=== PATIENT | male | born 1945 | race Caucasian/White ===

== ENCOUNTER 2018-04-05 12:00 | Inpatient (IN) | payer MEDICARE, OTHER ==
[~2018-04-05] VITALS: Ht 172.7 cm; Wt 95.1 kg
[2018-04-05] MEDS ORDERED: FINA5TAB4 PO (12:24)
[2018-04-05] MEDS ORDERED: CARB1TAB25 PO (12:24)
[2018-04-05] MEDS ORDERED: SODIUM CHLORIDE FLUSH 10ML SYR IVF ONE (12:30)
[2018-04-05 12:31] LABS: INTERNATIONAL NORMALIZED RATIO 0.96 (0.93-1.1); PROTHROMBIN TIME 9.9 Seconds (9.6-11.5)
[2018-04-05 12:34] LABS: ALBUMIN 3.2 g/dL (3.4-5.0); ANION GAP 8 mmol/L (5-15); CALCIUM 8.5 mg/dL (8.5-10.1); CHLORIDE 109 mmol/L (98-107); CREATININE 1.24 mg/dL (0.7-1.3)
[2018-04-05 12:39] LABS: TROPONIN I < 0.015 ng/mL (0.000-0.045)
[2018-04-05] MEDS ORDERED: LACT10SO28 PO (12:49)
[2018-04-05] MEDS ORDERED: CLON0.12 PO (12:49)
[2018-04-05] MEDS ORDERED: CARB1TAB4 PO (12:49)
[2018-04-05] MEDS ORDERED: SODIUM CHLORIDE FLUSH 10ML SYR IVF PRN (13:00)
[2018-04-05 13:07] LABS: BASOPHILS # (AUTO) 0.03 x10^3/uL (0-0.1); BASOPHILS % (AUTO) 1 % (0-1); EOSINOPHILS # (AUTO) 0.04 x10^3/uL (0-0.4); EOSINOPHILS % (AUTO) 1 % (1-7); LYMPHOCYTES # (AUTO) 0.92 x10^3/uL (1-3.4); LYMPHOCYTES % (AUTO) 16 % (22-44); MD NO; MEAN CORPUSCULAR HEMOGLOBIN 30.7 pg (27.5-34.5); MEAN CORPUSCULAR HGB CONC 32.9 g/dL (33.2-36.2); MEAN CORPUSCULAR VOLUME 93.5 fL (81-97); MEAN PLATELET VOLUME 9.4 fL (7.4-10.4); MONOCYTES # (AUTO) 0.57 x10^3/uL (0.2-0.8); MONOCYTES % (AUTO) 10 % (2-9); NEUTROPHILS # (AUTO) 4.33 x10^3/uL (1.8-6.8); NEUTROPHILS % (AUTO) 74 % (42-75); PLATELET COUNT 181 x10^3/uL (130-400); RED BLOOD COUNT 3.97 x10^6/uL (4.38-5.82); RED CELL DISTRIBUTION WIDTH 14.1 % (9.4-14.8)
[2018-04-05] MEDS ORDERED: BISACODYL 10 MG SUPP PR PRN (14:00)
[2018-04-05] MEDS ORDERED: ENALAPRILAT 1.25 MG/ML, 2ML IVPush PRN (14:00)
[2018-04-05] MEDS ORDERED: ONDANSETRON ODT 4 MG PO PRN (14:00)
[2018-04-05] MEDS ORDERED: ACETAMINOPHEN 325 MG TABLET PO PRN (14:00)
[2018-04-05] MEDS ORDERED: GADOBUTROL 10 MMOL/10 ML PFS ONE (14:39)
[2018-04-05] MEDS: SODIUM CHLORIDE 0.9% 1,000 ML IV SCH (16:13)
[2018-04-05] MEDS: ENOXAPARIN 40 MG/0.4 ML SQ SCH (16:14)
[2018-04-05] MEDS: CARBIDOPA/LEVODOPA CR 25 MG/100 MG TABLET PO SCH ×2 (16:14→20:59)
[2018-04-05 16:33] VITALS: BP 148/86
[2018-04-05 19:55] VITALS: BP 158/89
[2018-04-05] MEDS ORDERED: LACTULOSE 10 GM/15 ML UDC PO SCH (21:00)
[2018-04-05] MEDS: LACTULOSE 10 GM/15 ML UDC PO SCH (21:00)
[2018-04-06 02:00] VITALS: BP 161/99
[2018-04-06] MEDS: SODIUM CHLORIDE 0.9% 1,000 ML IV SCH ×2 (03:09→16:29)
[2018-04-06 05:27] LABS: BASOPHILS # (AUTO) 0.03 x10^3/uL (0-0.1); BASOPHILS % (AUTO) 1 % (0-1); EOSINOPHILS # (AUTO) 0.13 x10^3/uL (0-0.4); EOSINOPHILS % (AUTO) 2 % (1-7); LYMPHOCYTES # (AUTO) 1.68 x10^3/uL (1-3.4); LYMPHOCYTES % (AUTO) 30 % (22-44); MD NO; MEAN CORPUSCULAR HEMOGLOBIN 30.8 pg (27.5-34.5); MEAN CORPUSCULAR HGB CONC 32.9 g/dL (33.2-36.2); MEAN CORPUSCULAR VOLUME 93.7 fL (81-97); MONOCYTES % (AUTO) 12 % (2-9); NEUTROPHILS # (AUTO) 3.16 x10^3/uL (1.8-6.8); NEUTROPHILS % (AUTO) 55 % (42-75); PLATELET COUNT 182 x10^3/uL (130-400); RED BLOOD COUNT 3.99 x10^6/uL (4.38-5.82); RED CELL DISTRIBUTION WIDTH 13.8 % (9.4-14.8)
[2018-04-06 05:35] LABS: CHLORIDE 109 mmol/L (98-107)
[2018-04-06] MEDS: CARBIDOPA/LEVODOPA CR 25 MG/100 MG TABLET PO SCH ×4 (05:36→20:56)
[2018-04-06 05:42] LABS: ALANINE AMINOTRANSFERASE 10 U/L (12-78); ALBUMIN 3.1 g/dL (3.4-5.0); ALKALINE PHOSPHATASE 109 U/L (45-117); ANION GAP 7 mmol/L (5-15); BILIRUBIN,TOTAL 0.4 mg/dL (0.2-1.0); CALCIUM 8.1 mg/dL (8.5-10.1); CHOL/HDL RATIO 4.6; CHOLESTEROL, TOTAL 181 mg/dL (140-239); CREATININE 0.87 mg/dL (0.7-1.3); HDL CHOL % 22 % (26-37); HDL CHOLESTEROL (DIRECT) 39 mg/dL (40-60); LDL CHOLESTEROL,CALCULATED 106 mg/dL (54-169); LDL/HDL RATIO 2.7 (0.5-3.0); TOTAL PROTEIN 6.3 g/dL (6.4-8.2); TRIGLYCERIDES 178 mg/dL (50-200); VLDL CHOLESTEROL 36 mg/dL (0-25)
[2018-04-06 08:04] VITALS: BP 159/95
[2018-04-06] MEDS: LACTULOSE 10 GM/15 ML UDC PO SCH ×2 (08:29→21:02)
[2018-04-06] MEDS ORDERED: SENNA/DOCUSATE TABLET PO SCH (09:00)
[2018-04-06] MEDS: FINASTERIDE 5 MG TABLET PO SCH (09:12)
[2018-04-06] MEDS: ASPIRIN 325 MG TABLET EC PO SCH (10:55)
[2018-04-06 13:33] VITALS: BP 120/70
[2018-04-06] MEDS: ENOXAPARIN 40 MG/0.4 ML SQ SCH (15:48)
[2018-04-06 19:20] VITALS: BP 169/83
[2018-04-06] MEDS: ATORVASTATIN 40 MG TABLET PO SCH (20:56)
[2018-04-07 02:00] VITALS: BP 140/73
[2018-04-07] MEDS: CARBIDOPA/LEVODOPA CR 25 MG/100 MG TABLET PO SCH ×4 (05:48→20:27)
[2018-04-07] MEDS: ASPIRIN 325 MG TABLET EC PO SCH (05:49)
[2018-04-07] MEDS: SODIUM CHLORIDE 0.9% 1,000 ML IV SCH (05:49)
[2018-04-07 08:23] VITALS: BP 168/87
[2018-04-07] MEDS: FINASTERIDE 5 MG TABLET PO SCH (09:07)
[2018-04-07 10:06] LABS: BASOPHILS # (AUTO) 0.08 x10^3/uL (0-0.1); BASOPHILS % (AUTO) 1 % (0-1); EOSINOPHILS # (AUTO) 0.09 x10^3/uL (0-0.4); EOSINOPHILS % (AUTO) 1 % (1-7); LYMPHOCYTES # (AUTO) 1.33 x10^3/uL (1-3.4); LYMPHOCYTES % (AUTO) 21 % (22-44); MD NO; MEAN CORPUSCULAR HEMOGLOBIN 31.9 pg (27.5-34.5); MEAN CORPUSCULAR HGB CONC 34.3 g/dL (33.2-36.2); MEAN CORPUSCULAR VOLUME 93.1 fL (81-97); MEAN PLATELET VOLUME 8.8 fL (7.4-10.4); MONOCYTES # (AUTO) 0.57 x10^3/uL (0.2-0.8); MONOCYTES % (AUTO) 9 % (2-9); NEUTROPHILS # (AUTO) 4.35 x10^3/uL (1.8-6.8); NEUTROPHILS % (AUTO) 68 % (42-75); PLATELET COUNT 192 x10^3/uL (130-400); RED BLOOD COUNT 4.19 x10^6/uL (4.38-5.82); RED CELL DISTRIBUTION WIDTH 13.8 % (9.4-14.8)
[2018-04-07 10:14] LABS: INTERNATIONAL NORMALIZED RATIO 0.97 (0.93-1.1)
[2018-04-07 10:16] LABS: ANION GAP 6 mmol/L (5-15); CALCIUM 8.5 mg/dL (8.5-10.1); CHLORIDE 109 mmol/L (98-107); CREATININE 1.03 mg/dL (0.7-1.3)
[2018-04-07 14:13] VITALS: BP 142/88
[2018-04-07] MEDS: ISOSORBIDE DINITRATE 10 MG TABLET PO SCH ×2 (15:46→20:27)
[2018-04-07] MEDS: ENOXAPARIN 40 MG/0.4 ML SQ SCH (15:47)
[2018-04-07] MEDS ORDERED: LORazepam 2 MG/ML, 1ML IVPush PRN (16:00)
[2018-04-07] MEDS: LACTOBACILLUS CHEW TABLET PO SCH ×2 (17:08→20:27)
[2018-04-07 19:26] VITALS: BP 103/66
[2018-04-07] MEDS: ATORVASTATIN 40 MG TABLET PO SCH (20:27)
[2018-04-08] VITALS (10 sets, daily range): BP systolic 89–167; BP diastolic 58–91
[2018-04-08] MEDS: ASPIRIN 325 MG TABLET EC PO SCH (05:56)
[2018-04-08] MEDS: CARBIDOPA/LEVODOPA CR 25 MG/100 MG TABLET PO SCH ×4 (05:56→20:59)
[2018-04-08] MEDS: LACTOBACILLUS CHEW TABLET PO SCH ×3 (08:19→20:59)
[2018-04-08] MEDS: FINASTERIDE 5 MG TABLET PO SCH (08:19)
[2018-04-08] MEDS: ISOSORBIDE DINITRATE 10 MG TABLET PO SCH (09:41)
[2018-04-08] MEDS: ENOXAPARIN 40 MG/0.4 ML SQ SCH (14:41)
[2018-04-08] MEDS: SODIUM CHLORIDE 0.9% 1,000 ML IV SCH (14:41)
[2018-04-08] MEDS: ATORVASTATIN 40 MG TABLET PO SCH (20:59)
[2018-04-08] MEDS: DOCUSATE 100 MG CAPSULE PO PRN (20:59)
[2018-04-09 01:54] VITALS: BP 137/84
[2018-04-09] MEDS: CARBIDOPA/LEVODOPA CR 25 MG/100 MG TABLET PO SCH ×4 (06:04→20:29)
[2018-04-09] MEDS: SODIUM CHLORIDE 0.9% 1,000 ML IV SCH (06:04)
[2018-04-09] MEDS: ASPIRIN 325 MG TABLET EC PO SCH (06:04)
[2018-04-09] MEDS: LACTOBACILLUS CHEW TABLET PO SCH ×3 (07:48→20:29)
[2018-04-09] MEDS: FINASTERIDE 5 MG TABLET PO SCH (07:48)
[2018-04-09 08:07] VITALS: BP 147/84
[2018-04-09 14:10] VITALS: BP 91/56
[2018-04-09] MEDS: ENOXAPARIN 40 MG/0.4 ML SQ SCH (14:14)
[2018-04-09] MEDS: DOCUSATE 100 MG CAPSULE PO PRN (14:14)
[2018-04-09 14:19] VITALS: BP 144/76
[2018-04-09 17:05] VITALS: BP 174/93
[2018-04-09 19:15] VITALS: BP 134/78
[2018-04-09] MEDS: ATORVASTATIN 40 MG TABLET PO SCH (20:29)
[2018-04-10 01:05] VITALS: BP 134/74
[2018-04-10] MEDS: CARBIDOPA/LEVODOPA CR 25 MG/100 MG TABLET PO SCH ×2 (06:00→10:03)
[2018-04-10] MEDS: DOCUSATE 100 MG CAPSULE PO PRN (06:00)
[2018-04-10] MEDS: ASPIRIN 325 MG TABLET EC PO SCH (06:00)
[2018-04-10 07:39] VITALS: BP 156/87
[2018-04-10 09:42] VITALS: BP 92/51
[2018-04-10] MEDS ORDERED: SODIUM CHLORIDE 0.9%, 250ML IVBOLUS ONE (10:00)
[2018-04-10] MEDS: LACTOBACILLUS CHEW TABLET PO SCH (10:02)
[2018-04-10] MEDS: FINASTERIDE 5 MG TABLET PO SCH (10:03)
[2018-04-10] MEDS ORDERED: ASPI-496 PO (11:46)
[2018-04-10] MEDS ORDERED: ACID1TAB7 PO (11:46)
[2018-04-10 11:54] VITALS: BP 122/74
[2018-04-10 14:00] VITALS: BP 127/79
[2018-04-10] MEDS: ENOXAPARIN 40 MG/0.4 ML SQ SCH (14:03)
== END 2018-04-10 17:27 | disposition home or self-care (01) | DRG 683 ==
LOC: ED 12:59 → EDIP 13:00 → OBSVTOIN 13:00 → INTOOBSV 13:00 → ED 13:23 → 4EST 13:25
PROVIDERS: ADMIT Hospitalist; ATTEND Hospitalist
DX: N17.9 Acute kidney failure, unspecified (principal); G45.9 Transient cerebral ischemic attack, unspecified; R47.01 Aphasia; I95.1 Orthostatic hypotension; G20 Parkinson's disease; E66.9 Obesity, unspecified; I35.8 Other nonrheumatic aortic valve disorders; I10 Essential (primary) hypertension; K59.09 Other constipation; Z66 Do not resuscitate; R33.9 Retention of urine, unspecified; Z68.31 Body mass index [BMI] 31.0-31.9, adult; R60.0 Localized edema
CPT/HCPCS: 36415; 70450; 70553; 71045; 80047; 80048; 80053; 80061; 82040; 82962; 83880; 84484; 85025; 85610; 85730; 93005; 93306; 93880; 93970; 95819; 99285; A9585; J1650; G0378; J7030; J7050